=== PATIENT | female | born 1960 | race American Indian/Alaskan Native ===

== ENCOUNTER 2018-09-26 13:23 | Outpatient (CLI) | payer OTHER | END 2018-09-26 13:24 | disposition home or self-care (01) | LOC: BICMAMMO 13:23 | PROVIDERS: ATTEND Obstetrics & Gynecology | DX: Z12.31 Encounter for screening mammogram for malignant neoplasm of breast (principal); Z80.3 Family history of malignant neoplasm of breast | CPT/HCPCS: 77063; 77067 ==

== ENCOUNTER 2018-11-28 12:17 | Outpatient (CLI) | payer OTHER ==
--- NOTE | 2018-11-28 13:25 | RAD ---
AP VIEW PELVIS: HISTORY: Bilateral hip pain for 1-1/2 years. TECHNIQUE: AP view pelvis is obtained. FINDINGS: The pelvis is unremarkable. No evidence of pelvic fractures, subluxations, or bony lesions seen. IMPRESSION: Unremarkable anterior-posterior view pelvis. POS: [facility]
--- NOTE | 2018-11-28 13:27 | RAD ---
LEFT HIP TWO VIEWS: HISTORY: Left hip pain. TECHNIQUE: AP and frogleg views of the left hip are obtained. FINDINGS: Two views of the left hip demonstrate no evidence of left hip fractures, subluxations, or bony lesion s. IMPRESSION: Unremarkable two views left hip. POS: [facility]
--- NOTE | 2018-11-28 13:28 | RAD ---
RIGHT HIP TWO VIEWS: HISTORY: Right hip pain. TECHNIQUE: AP and frogleg views of the right hip are obtained. FINDINGS: Two views of the right hip demonstrate no evidence of right hip fractures, subluxations, or bony lesi ons. IMPRESSION: Normal two views right hip. POS: [facility]
== END 2018-11-28 12:18 | disposition home or self-care (01) ==
LOC: BICRAD 12:17
PROVIDERS: ATTEND Internal Medicine Rheumatology
DX: M70.62 Trochanteric bursitis, left hip (principal)
CPT/HCPCS: 72170

== ENCOUNTER 2019-07-23 16:44 | Outpatient (CLI) | payer OTHER ==
[2019-07-23 17:04] LABS: #Eosinphils 0.1 thou/uL (0.0-0.7); #Monocytes 0.3 thou/uL (0.11-0.59); %Basophils 0.8 % (0.0-1.0); %Eosinophils 1.9 % (0.0-10.0); %Lymphocytes 30.5 % (21.0-51.0); %Monocytes 4.9 % (0.0-10.0); Hemoglobin 13.5 g/dL (12.0-16.0); Mean Corpuscular HGB CONC 35.1 g/dL (32.0-36.0); Mean Corpuscular Hemoglobin 30.6 pg (27.0-31.0); Mean Platelet Volume 7.4 fL (7.4-10.4); Platelet Count 250 thou/uL (130-400); RBC Distribution Width 11.6 % (11.5-14.5); Red Blood Cell (RBC) Count 4.41 mill/uL (4.20-5.40); White Blood Cell (WBC) Count 6.4 thou/uL (4.8-10.8)
[2019-07-23 17:29] LABS: Anion Gap 13 mmol/L (10-20); BUN (Urea Nitrogen) 13 mg/dL (9.8-20.1); Calc. Creatinine Clearance 0 mL/min (70-130); Calcium 9.6 mg/dL (7.8-10.44); Carbon Dioxide 25 mmol/L (22-29); Chloride 101 mmol/L (98-107); Estimated GFR-MDRD 62; Glucose 99 mg/dL (70-105); Potassium 3.7 mmol/L (3.5-5.1); Sodium 135 mmol/L (136-145)
--- NOTE | 2019-07-24 18:48 | EKG ---
Test Reason : Blood Pressure : / mmHG Vent. Rate : 093 BPM Atrial Rate : 093 BPM P-R Int : 174 ms QRS Dur : 070 ms QT Int : 368 ms P-R-T Axes : 059 073 068 degrees QTc Int : 457 ms Normal sinus rhythm Normal ECG When compared with ECG of 02-APR-1997 12:58, QT has lengthened Confirmed by INÉS THOMPSON, SAgustin ([id number]) on 07/24/2019 6:47:57 PM Referred By: CATHY Confirmed By:DR. Alysia CONTE MD
== END 2019-07-23 16:45 | disposition home or self-care (01) ==
LOC: LABBT 16:44
PROVIDERS: ATTEND Orthopaedic Surgery
DX: Z01.818 Encounter for other preprocedural examination (principal); G56.01 Carpal tunnel syndrome, right upper limb
CPT/HCPCS: 80048; 85025; 93005; 93010

== ENCOUNTER 2019-07-24 06:17 | Day surgery (SDC) | payer OTHER ==
[2019-07-23 13:51] VITALS: BMI 25.7
[2019-07-24] MEDS ORDERED: Clindamycin/D5W 600 mg/50 ml Premix Bag ONE ×2 (07:40→08:41)
[2019-07-24] MEDS ORDERED: Lidocaine 1% w/Epinephrine 1:100K 20 ML VIAL ONE (08:20)
[2019-07-24] MEDS ORDERED: Midazolam HCl 2 mg/2 ml Vial ONE ×2 (08:33→08:36)
[2019-07-24] MEDS ORDERED: Fentanyl 100 MCG/2 ML VIAL ONE (08:36)
--- NOTE | 2019-07-24 10:30 | OP ---
DATE OF PROCEDURE: 07/24/2019 PREOPERATIVE DIAGNOSIS: Right carpal tunnel syndrome. POSTOPERATIVE DIAGNOSIS: Right carpal tunnel syndrome. ANESTHESIA: General. BLOOD LOSS: Minimal. SPECIMEN: None. DRAIN: None. COMPLICATION: None. TYPE OF PROCEDURE: Right carpal tunnel release. TOURNIQUET TIME: PROCEDURE IN DETAIL: After appropriate consent was obtained, the patient was taken to the operating room where TIVA anesthesia was induced. The arm was prepped and draped in the sterile fashion. The arm was exsanguinated. The tourniquet was inflated to 250 mmHg. A longitudinal incision was made. Hemostasis obtained. Dissection was carried down to the transverse carpal ligament. The transverse carpal ligament was incised. Hemostat was placed deep in the transverse carpal ligament. The knife was used to cut down unto the ligament and hemostat. Care was taken to protect the contents of the carpal canal. Attention was then turned proximally. Metzenbaum scissors were used to release the carpal ligament into the forearm fascia. The carpal tunnel was palpated. There were no masses. The tourniquet was released. Hemostasis was obtained. Copious irrigation performed. The skin was closed with 4-0 nylon. A sterile dressing was applied and the patient was placed in a splint. There were no complications. Job ID: [id number]
[2019-07-24] MEDS ORDERED: PROPOFOL 200 MG/20 ML VIAL ONE (11:09)
[2019-07-24] MEDS ORDERED: Ondansetron PF 4 MG/2 ML Vial ONE (11:09)
[2019-07-24] MEDS ORDERED: Lidocaine 1% PF 5 ML VIAL ONE (11:09)
== END 2019-07-24 10:35 | disposition home or self-care (01) ==
LOC: SDC 06:17
PROVIDERS: ATTEND Orthopaedic Surgery
PROC: 01N50ZZ Release Median Nerve, Open Approach (ICD-10-PCS; principal; 2019-07-24)
DX: G56.01 Carpal tunnel syndrome, right upper limb (principal); E78.00 Pure hypercholesterolemia, unspecified; Z79.899 Other long term (current) drug therapy; Z88.0 Allergy status to penicillin; Z88.1 Allergy status to other antibiotic agents; Z88.5 Allergy status to narcotic agent; Z88.8 Allergy status to other drugs, medicaments and biological substances
CPT/HCPCS: J2001; J2250; J2405; J2704; J3010; J3490

== ENCOUNTER 2020-04-01 14:42 | Emergency (ER) | payer OTHER ==
[2020-04-02 12:18] LABS: SARS-CoV-2 MS2 Positive; SARS-CoV-2 N Gene Negative; SARS-CoV-2 S Gene Negative; SARS-CoV-2 orf1ab Negative
== END 2020-04-01 15:02 | disposition home or self-care (01) ==
LOC: ERS 14:42
DX: J02.9 Acute pharyngitis, unspecified (principal); R51 Headache; Z20.828 Contact with and (suspected) exposure to other viral communicable diseases; I73.00 Raynaud's syndrome without gangrene; E03.9 Hypothyroidism, unspecified; Z79.899 Other long term (current) drug therapy
CPT/HCPCS: 87635; 99283; U0003

== ENCOUNTER 2020-08-12 09:35 | Outpatient (CLI) | payer OTHER ==
--- NOTE | 2020-08-12 10:58 | MRI ---
MRI lumbar spine noncontrast HISTORY: Low back pain with right leg radiculopathy. COMPARISON: 05/12/2015. FINDINGS: Normal-appearing conus medullaris terminates at the L1-2 level. There is partial sacralizat ion of the fifth lumbar segment. 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 T12/L1: Desiccation of the disc. Mild congenital disc space narrowing. The central canal and neural f oramina are patent. L1-2: Desiccation of the disc. Minimal degenerative retrolisthesis. Mild osteophytosis of the facets. Central canal and neural foramina are patent. L2-3: Disc space narrowing has increased slightly since the prior study. There is desiccation of the disc. Discogenic endplate changes within the bone marrow have progressed with a Schmorl's node projecting into the right side of the L2 inferior endplate. There is also mild right lateral protrusi on of the intervertebral disc, with resultant moderate stenosis of the right neural foramen. The central canal and left neural foramen are patent. L3-4: Mild osteophytosis of the facets. Central canal and neural foramina are patent. L4-5: Mild osteophytosis. Minimal disc bulge. Central canal and neural foramina are patent. L5-S1: Mild osteophytosis. Central canal and neural foramina are patent. IMPRESSION : Degenerative changes have progressed at the L2-3 level, now with mild rightward disc protrusion and c ompromise of the right neural foramen. Clinical correlation regarding the right L2 dermatome is required. Otherwise mild degenerative changes. 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
== END 2020-08-12 09:36 | disposition home or self-care (01) ==
LOC: TBSIIMAG 09:35
PROVIDERS: ATTEND Specialist
DX: M51.17 Intervertebral disc disorders with radiculopathy, lumbosacral region (principal); M47.816 Spondylosis without myelopathy or radiculopathy, lumbar region; M51.26 Other intervertebral disc displacement, lumbar region; M43.24 Fusion of spine, thoracic region
CPT/HCPCS: 72148

== ENCOUNTER 2021-05-26 12:12 | Outpatient (CLI) | payer OTHER | END 2021-05-26 12:13 | disposition home or self-care (01) | LOC: BICMAMMO 12:12 | PROVIDERS: ATTEND Internal Medicine | DX: Z12.31 Encounter for screening mammogram for malignant neoplasm of breast (principal); Z80.3 Family history of malignant neoplasm of breast | CPT/HCPCS: 77063; 77067 ==

== ENCOUNTER 2022-03-02 11:10 | Outpatient (CLI) | payer BC | END 2022-03-02 11:11 | disposition home or self-care (01) | LOC: BICCT 11:10 | PROVIDERS: ATTEND Internal Medicine | DX: S09.90XA Unspecified injury of head, initial encounter (principal); M89.9 Disorder of bone, unspecified; M19.09 Primary osteoarthritis, other specified site; W10.1XXA Fall (on)(from) sidewalk curb, initial encounter | CPT/HCPCS: 70450 ==

== ENCOUNTER 2022-03-06 10:59 | Outpatient (CLI) | payer BC | END 2022-03-06 11:00 | disposition home or self-care (01) | LOC: MRI 10:59 | PROVIDERS: ATTEND Internal Medicine | DX: R41.844 Frontal lobe and executive function deficit (principal) | CPT/HCPCS: 70553 ==

== ENCOUNTER 2023-09-05 15:34 | Emergency (ER) | payer BC | END 2023-09-05 18:05 | disposition home or self-care (01) | LOC: ERS 15:34 | DX: M54.2 Cervicalgia (principal); M54.50 Low back pain, unspecified; E03.9 Hypothyroidism, unspecified; Z79.890 Hormone replacement therapy | CPT/HCPCS: 70450; 72125 ==

== ENCOUNTER 2023-09-16 14:45 | Outpatient (CLI) | payer OTHER | END 2023-09-16 14:46 | disposition home or self-care (01) | LOC: BICRAD 14:45 | PROVIDERS: ATTEND Family Medicine | DX: S39.012D Strain of muscle, fascia and tendon of lower back, subsequent encounter (principal); M47.816 Spondylosis without myelopathy or radiculopathy, lumbar region | CPT/HCPCS: 72100 ==

== ENCOUNTER 2023-11-07 08:38 | Outpatient (CLI) | payer OTHER | END 2023-11-07 08:39 | disposition home or self-care (01) | LOC: MRI 08:38 | PROVIDERS: ATTEND Family Medicine | DX: M53.3 Sacrococcygeal disorders, not elsewhere classified (principal); M47.816 Spondylosis without myelopathy or radiculopathy, lumbar region; M48.061 Spinal stenosis, lumbar region without neurogenic claudication; S32.029A Unspecified fracture of second lumbar vertebra, initial encounter for closed fracture | CPT/HCPCS: 72148 ==

== ENCOUNTER 2023-11-15 11:37 | Outpatient (CLI) | payer BC | END 2023-11-15 11:38 | disposition home or self-care (01) | LOC: BICMAMMO 11:37 | PROVIDERS: ATTEND Internal Medicine | DX: Z12.31 Encounter for screening mammogram for malignant neoplasm of breast (principal); Z80.3 Family history of malignant neoplasm of breast; Z91.89 Other specified personal risk factors, not elsewhere classified | CPT/HCPCS: 77063; 77067 ==